=== PATIENT | female | born 1975 | race Caucasian/White ===

== ENCOUNTER 2021-02-17 14:39 | Emergency (ER) | payer BC, OTHER ==
[~2021-02-17] VITALS: Ht 167.6 cm; Wt 81.6 kg
--- NOTE | 2021-02-17 14:41 | NUR ---
PT COMES IN TO ROOM CRYING AND YELLING HYSTERICALLY, STATES SHE'S ANXIOUS AND OVERDOSED WITH 1 PILL OF VALIUM THAT SHE RECEIVED SEVERAL DAYS AGO AT [facility], [place]. PT REPORTS UNCONTROLLABLE MOVEMENTS AND UNCONTROLABLE CRYING. PT OBSERVED OF ANSWERING PHONE CALLS WITH MOTHER DEMANDING SHE COME TO ER. DIFFICULT TO CALM DOWN, SAFETY PRECAUTIONS IN PLACE.
[2021-02-17 14:50] VITALS: BP_SYST 146
--- NOTE | 2021-02-17 14:57 | NUR ---
DR ZAMUDIO AT BEDSIDE FOR EXAM.
[2021-02-17] MEDS ORDERED: DIPHENHYDRAMINE INJ 50 MG/ML VIAL IVP ONE (15:00)
[2021-02-17] MEDS ORDERED: OLANZapine IntraMuscular 10 MG VIAL (FOR I.M. INJECTION ONLY) IM ONE (15:00)
--- NOTE | 2021-02-17 16:02 | NUR ---
RECEIVED PT FROM ART DOWN FILLER NURSE, PT ALREADY MEDICATED ORDERED. PT NOW REQUESTING TO GO HOME. STATES "I FEEL BETTER". DR ZAMUDIO INFORMED.
--- NOTE | 2021-02-17 17:04 | NUR ---
PT WITH EYES CLOSED, EASILY AROUSABLE. RESP EVEN AND UNLABORED, WAITING FOR RIDE HOME. NSR ON MONITOR.
[2021-02-17 17:45] VITALS: BP_SYST 142
--- NOTE | 2021-02-17 17:45 | NUR ---
Patient given written and verbal discharge instructions and verbalizes understanding. ER MD discussed with patient the results and treatment provided. Patient in stable condition. ID arm band removed. IV catheter removed intact and dressing applied, no active bleeding. Patient educated on pain management and to follow up with PMD. Pain Scale . Opportunity for questions provided and answered. Medication side effect fact sheet provided.
== END 2021-02-17 17:45 | disposition home or self-care (01) ==
LOC: SED 14:39
DX: F41.9 Anxiety disorder, unspecified (principal); R25.2 Cramp and spasm; F32.9 Major depressive disorder, single episode, unspecified
CPT/HCPCS: 96374; 96375; 99284; J1200; J3490